=== PATIENT | female | born 1950 | race Caucasian/White ===

== ENCOUNTER 2016-08-11 08:17 | Emergency (ER) | payer OTHER, MEDICARE ==
[~2016-08-11] VITALS: Ht 152.4 cm; Wt 72.0 kg
[2016-08-11 08:20] VITALS: Ht 152.4 cm; Wt 72.0 kg
[2016-08-11 08:27] VITALS: BP 145/85; PULSE 80; RESP 18; TEMP 98.9
[2016-08-11] MEDS ORDERED: SOD CHLORIDE 0.9% 500 ML IV STA (08:31)
[2016-08-11 08:59] LABS: BASOPHILS % 0.7 % (0.0-2.0); EOSINOPHILS % 0.1 % (0.0-7.0); HEMATOCRIT 38.5 % (37.0-47.0); HEMOGLOBIN 12.9 g/dl (12.0-16.0); LYMPHOCYTES # 1.4 10^3/ul (0.8-2.9); LYMPHOCYTES % 28.4 % (15.0-51.0); MEAN CORPUSCULAR HEMOGLOBIN 29.9 pg (29.0-33.0); MEAN CORPUSCULAR HGB CONC 33.5 g/dl (32.0-37.0); MEAN PLATELET VOLUME 7.5 fl (7.4-10.4); MONOCYTE # 0.3 10^3/ul (0.3-0.9); MONOCYTES % 6.7 % (0.0-11.0); NEUTROPHIL # 3.2 10^3/ul (1.6-7.5); NEUTROPHILS % 64.1 % (39.0-77.0); PLATELET COUNT 315 10^3/UL (140-440); RED BLOOD COUNT 4.32 10^6/ul (4.20-5.40)
[2016-08-11 09:07] LABS: CONDITION 1; LH ANALYZER COMMENTS 1
[2016-08-11 09:09] LABS: ALBUMIN 2.1 g/dl (3.3-4.9); CHLORIDE 103 mmol/L (97-110); POTASSIUM 3.9 mmol/L (3.5-5.1); SODIUM 139 mmol/L (135-144)
[2016-08-11 09:12] LABS: ALANINE AMINOTRANSFERASE 56 IU/L (13-69); ALBUMIN/GLOBULIN RATIO 0.72; ALKALINE PHOSPHATASE 129 IU/L (42-121); ANION GAP 11 (8-16); ASPARTATE AMINO TRANSFERASE 49 IU/L (15-46); BILIRUBIN,INDIRECT 0.3 mg/dl (0-1.1); BILIRUBIN,TOTAL 0.3 mg/dl (0.2-1.3); BLOOD UREA NITROGEN 7 mg/dl (7-20); CARBON DIOXIDE 29 mmol/L (21-31); CREATININE 0.54 mg/dl (0.44-1.00); GLUCOSE 96 mg/dl (70-220)
[2016-08-11 09:13] LABS: CALCIUM 7.7 mg/dl (8.4-10.2)
[2016-08-11] MEDS ORDERED: CA CHLORIDE 10% 10 ML SYRINGE IV ONE (09:30)
[2016-08-11 09:50] LABS: TROPONIN-I < 0.012 ng/ml (0.00-0.12)
[2016-08-11 10:03] LABS: ADD UMIC YES; URINE BILIRUBIN (Dip) NEGATIVE (NEGATIVE); URINE BLOOD (Dip) NEGATIVE (NEGATIVE); URINE COLOR LT. YELLOW (YELLOW); URINE GLUCOSE (Dip) NEGATIVE (NEGATIVE); URINE KETONES (Dip) NEGATIVE (NEGATIVE); URINE LEUKOCYTE ESTERASE (Dip) NEGATIVE (NEGATIVE); URINE NITRITE (Dip) NEGATIVE (NEGATIVE); URINE TOTAL PROTEIN (Dip) TRACE (NEGATIVE); URINE UROBILINOGEN (Dip) 0.2 E.U./dL (0.1-1.0)
[2016-08-11] MEDS ORDERED: LOSA50TA6 PO (10:21)
[2016-08-11] MEDS ORDERED: AMLO5TAB4 PO (10:21)
--- NOTE | 2016-08-11 10:28 | ERD ---
ER Documentation Chief Complaint Date/Time DATE: 08/11/16 TIME: 10:27 Chief Complaint ABD PAIN WITH N/V X 1 MONTH HPI 66-year-old woman here for calcium recheck as she was recently diagnosed with hypocalcemia. She was triaged as abdominal pain although she states that is not why she is here. She has had chronic abdominal pain for over 2 months with intermittent episodes of vomiting and diarrhea, and was recently diagnosed with hypoalbuminemia and hypocalcemia. She denies recent weight loss, no fevers or chills, no chest pain or shortness of breath. She denies blood per rectum or melena, no trauma, no headache or blurry vision, no muscle or extremity spasms ROS All systems reviewed and are negative except as per history of present illness. Medications Home Meds Active Scripts Ondansetron Hcl* (Zofran*) 4 Mg Tablet, 4 MG PO Q8H Y for NAUSEA AND/OR VOMITING , #30 TAB Prov:MIKI BAER MD 08/11/16 Reported Medications Losartan Potassium* (Losartan Potassium*) 50 Mg Tablet, 50 MG PO DAILY, TAB 08/11/16 Amlodipine Besylate* (Norvasc*) 5 Mg Tablet, 5 MG PO DAILY, TAB 08/11/16 Allergies Allergies: Coded Allergies: No Known Allergy (Unverified , 08/11/16) PMhx/Soc Hypertension History of Surgery: No Anesthesia Reaction: No Hx Neurological Disorder: No Hx Respiratory Disorders: No Hx Cardiac Disorders: Yes (HTN) Hx Psychiatric Problems: No Hx Miscellaneous Medical Probl: No Hx Alcohol Use: No Hx Substance Use: No Hx Tobacco Use: No Smoking Status: Never smoker FmHx Family History: No diabetes Physical Exam Vitals Vital Signs Date Time Temp Pulse Resp B/P Pulse Ox O2 Delivery O2 Flow Rate FiO2 08/11/16 08:27 98.9 80 18 145/85 98 08/11/16 08:20 98.9 85 18 143/75 98 Physical Exam GENERAL: Well-developed, well-nourished, well-hydrated, in no apparent distress , looks nontoxic in appearance HEENT: Moist mucous membranes, pink conjunctiva, no cervical spine tenderness or step-off deformities, no goiter, no jaundice or icterus, extraocular movements intact without pain. No submandibular induration, and no pharyngeal erythema NEURO: Alert and oriented 3, cranial nerves II through XII intact bilaterally, pupils equal round reactive to light, no focal deficits or facial asymmetry, sensation intact distally Strength 5/5 in upper and lower extremities bilaterally CARDIAC: Regular rate and rhythm, no murmurs rubs or gallops LUNGS: Clear bilaterally no wheezing crackles or stridor ABDOMEN: Soft nontender, no guarding, no rigidity, no rebound, no psoas sign no obturator sign. Normoactive bowel sounds SKIN: Warm and dry to touch, no abrasions, contusions, or hematomas, no lacerations, no ecchymosis, no target lesions, and without ulcers EXTREMITIES: No clubbing cyanosis or edema, calves are bilaterally symmetrical, no Homans sign, no popliteal cord sign. Distal pulses equal and bilateral PSYCH: Normal affect without agitation or irritability Result Diagram: 08/11/1684308/11/1644 Results 24 hrs Laboratory Tests Test 08/11/16 08:44 08/11/16 09:30 Alanine Aminotransferase (ALT/SGPT) 56IU/L Albumin 2.1g/dl Albumin/Globulin Ratio 0.72 Alkaline Phosphatase 129IU/L Anion Gap 11 Aspartate Amino Transf (AST/SGOT) 49IU/L Basophils # 0.010^3/ul Basophils % 0.7% Blood Morphology Comment Blood Urea Nitrogen 7mg/dl Calcium Level 7.7mg/dl Carbon Dioxide Level 29mmol/L Chloride Level 103mmol/L Creatinine 0.54mg/dl Direct Bilirubin 0.00mg/dl Eosinophils # 0.010^3/ul Eosinophils % 0.1% Globulin 2.90g/dl Glucose Level 96mg/dl Hematocrit 38.5% Hemoglobin 12.9g/dl Indirect Bilirubin 0.3mg/dl Lipase 61U/L Lymphocytes # 1.410^3/ul Lymphocytes % 28.4% Mean Corpuscular Hemoglobin 29.9pg Mean Corpuscular Hemoglobin Concent 33.5g/dl Mean Corpuscular Volume 89.0fl Mean Platelet Volume 7.5fl Monocytes # 0.310^3/ul Monocytes % 6.7% Neutrophils # 3.210^3/ul Neutrophils % 64.1% Nucleated Red Blood Cells # 0.010^3/ul Nucleated Red Blood Cells % 0.0/100WBC Platelet Count 70623^3/UL Potassium Level 3.9mmol/L Red Blood Count 4.3210^6/ul Red Cell Distribution Width 15.0% Sodium Level 139mmol/L Total Bilirubin 0.3mg/dl Total Protein 5.0g/dl Troponin I < 0.012ng/ml White Blood Count 5.010^3/ul Urine Bilirubin NEGATIVE Urine Clarity CLEAR Urine Color LT. YELLOW Urine Epithelial Cells FEW Urine Glucose NEGATIVE% Urine Hemoglobin NEGATIVE Urine Hyaline Casts RARE Urine Ketones NEGATIVE Urine Leukocyte Esterase NEGATIVE Urine Microscopic RBC 2-5/HPF Urine Microscopic WBC 5-10/HPF Urine Nitrite NEGATIVE Urine Specific [place] 1.015 Urine Total Protein TRACE Urine Urobilinogen 0.2 E.U./dL Urine pH 8.0 Current Medications Medications (Trade) Dose Ordered Sig/Stu Route PRN Reason Start Time Stop Time Status Last Admin Dose Admin Sodium Chloride (NS) 500 ml @ 500 mls/hr Q1H STAT IV 08/11/16 08:31 08/11/16 09:30 DC 08/11/16 08:51 Calcium Chloride (Ca Chloride 10% Syg) 1,000 mg ONCE ONCE IV 08/11/16 09:30 08/11/16 09:31 DC 08/11/16 09:33 Procedures/MDM IV line was established patient was placed on surveillance monitor rhythm strip revealed sinus rhythm at about 70 bpm with upright P and T waves. EKG performed, read by me: 73 bpm, normal sinus rhythm, normal axis, no acute ST segment changes, narrow QRS complex, with good R-wave progression in precordial leads. CBC was unremarkable, calcium was low at 7.7 otherwise electrolytes normal, liver function tests revealed mild low albumin and total protein, troponin was negative, urine analysis was negative for infection. Administered 1 L normal saline intravenously and calcium chloride 1 g IV Differential diagnoses considered, included but not limited to acute coronary syndrome, pulmonary embolism, aortic dissection, abdominal aortic aneurysm, sepsis, stroke, meningitis, encephalitis, pneumonia, appendicitis, cholecystitis , bowel obstruction, pyelonephritis, nephrolithiasis, cystitis, as well as metabolic, hematologic, and electrolyte abnormalities. As well as abscess, cellulitis, fractures, and dislocations. Patient feels much better at this time, and vital signs are normal, symptoms have improved. I did give strict instructions to return to the ED if symptoms continue or worsen, patient will otherwise follow-up with primary care physician. Patient understood instructions and agreed to plan. Departure Diagnosis: Primary Impression: Hypocalcemia Condition: Good Patient Instructions: Hypocalcemia (Adult) MIKI BAER MD Aug 11, 2016 10:28
[2016-08-11] MEDS ORDERED: ONDA4TAB8 PO (10:34)
== END 2016-08-11 11:05 | disposition home or self-care (01) ==
LOC: FTE 08:17
DX: E83.51 Hypocalcemia (principal); R11.2 Nausea with vomiting, unspecified; I10 Essential (primary) hypertension
CPT/HCPCS: 36415; 80053; 81001; 83690; 84484; 85025; 93005; 96374; J7040; Z7502; Z7610; 81003